=== PATIENT | female | born 1945 ===

== ENCOUNTER → 2023-10-07 | Outpatient (CLI) | payer OTHER ==
[2023-10-07 11:44] LABS: Basophils # (auto) 0 10 ^3/uL (0-0.2); Basophils % (auto) 0.5 % (0.0-2.0); Eosinophils # (auto) 0.2 10 ^3/uL (0-0.8); Eosinophils % (auto) 3.2 % (0.0-7.0); Hemoglobin 13.8 g/dL (12.2-16.2); Lymphocytes % (auto) 35.8 % (10.0-50.0); Mean Corpuscular Hemoglobin 28.9 pg (28.0-32.0); Mean Corpuscular Hgb Conc. 32.9 g/dL (32.0-36.0); Mean Corpuscular Volume 87.7 fL (80.0-100.0); Monocytes # (auto) 0.4 10 ^3/uL (0-1.3); Monocytes % (auto) 7.7 % (0.0-12.0); Neutrophils # (auto) 2.9 10 ^3/uL (1.6-8.6); Neutrophils % (auto) 52.8 % (37.0-80.0); Red Blood Cells 4.79 10^6/uL (4.0-5.20); Red Cell Distribution Width 14.1 % (11.8-14.3); White Blood Cell 5.5 10^3/uL (4.4-10.8)
[2023-10-07 12:35] LABS: Erythrocyte Sedimentation Rate 8 mm/hr (0-20)
[2023-10-07 13:33] LABS: Alanine Aminotransferase 14 U/L (7-40); Albumin 4.4 g/dL (3.2-4.8); Alkaline Phosphatase 68 U/L (46-116); Aspartate Aminotransferase 24 U/L (13-40); BUN/Creatinine Ratio 8.9 (10.0-20.0); Bilirubin, Total 0.6 mg/dL (0.2-1.0); Blood Urea Nitrogen 9 mg/dL (9-23); Calcium 9.9 mg/dL (8.5-10.1); Cholesterol 151 mg/dL (< 200); Glucose 96 mg/dL (74-106); HDL Cholesterol 56 mg/dL (40-59); LDL Cholesterol 78 mg/dL (< 100); Sodium 141 mmol/L (136-145); Total Protein 6.9 g/dL (5.7-8.2); Triglycerides 113 mg/dL (< 150)
[2023-10-07 13:51] LABS: Free T4 (Free Thyroxine) 0.98 ng/dL (0.89-1.76)
[2023-10-07 13:52] LABS: Carbon Dioxide 25 mmol/L (20-30)
[2023-10-07 13:53] LABS: Folate (Folic Acid) 16.15 ng/mL (>5.38)
[2023-10-07 17:00] LABS: Anion Gap 8 (5-15); Chloride 108 mmol/L (98-107)
[2023-10-08 07:06] LABS: RPR Non Reactive (Non Reactive)
[2023-10-08 07:13] LABS: Urine Bacteria NONE SEEN /hpf (None Seen); Urine Blood Negative /uL (Negative); Urine Clarity Clear (Clear); Urine Protein, UAD Negative (Negative); Urine Specific Gravity 1.006 (1.001-1.035); Urine Urobilinogen Normal (Negative); Urine WBC 1 /hpf (0 - 5)
[2023-10-08 07:14] LABS: Urine Color Straw (Yellow)
== END | disposition home or self-care (01) ==
LOC: LAB 11:15
PROVIDERS: ATTEND Internal Medicine
DX: I10 Essential (primary) hypertension (principal); L30.9 Dermatitis, unspecified
CPT/HCPCS: 36415; 80053; 80061; 81001; 82607; 82746; 84439; 84443; 85025; 85652; 86592

== ENCOUNTER → 2023-10-08 | Outpatient (CLI) | payer OTHER | END | disposition home or self-care (01) | LOC: LAB 06:39 | PROVIDERS: ATTEND Internal Medicine | DX: K52.9 Noninfective gastroenteritis and colitis, unspecified (principal) | CPT/HCPCS: 87045; 87177; 87427; 87493 ==

== ENCOUNTER 2025-02-10 04:45 | Emergency (ER) | payer OTHER ==
[~2025-02-10] VITALS: Ht 167.6 cm; Wt 68.0 kg
--- NOTE | 2025-02-10 06:40 | DVH ---
EXAM: CT CHEST WITHOUT CONTRAST; DATE: 02/10/2025 06:03 AM HISTORY: rib pain fall COMPARISON: None TECHNIQUE: Axial images were obtained and reformatted in coronal and sagittal planes. All CT scans a [facility] are performed using dose modulation techniques as appropriate to a performed exam including the following: Automated exposure control was utilized; adjustment of the MA and/or KV according to patient size; and use of iterative reconstruction technique. CT Dose: CTDI volume is 16.6 mGy. Dose-length product is 610 mGy*cm FINDINGS: Lower neck: Unremarkable. Cardiomediastinal: The heart is normal in size. Coronary artery calcification. No pericardial effus ion. Lungs: Unremarkable. Bones and Soft Tissues: No acute abnormality. No rib fracture. Mild multilevel degenerative disc dis ease of the thoracic spine noted. Mild upper thoracic spine dextroscoliosis. Upper Abdomen: No acute abnormality. Surgical clips are seen in the right upper quadrant. Several lef t renal cysts noted. Other: None. IMPRESSION: 1. No acute abnormality is identified. No rib fracture.
--- NOTE | 2025-02-10 06:45 | ED.PDOC ---
History of Present Illness HPI Comments 79F BIBA w/ no prior Hx associated to the c/c of rib pain. Pt's son reports that the pt fell and landed onto a trash can which had "sharp ridges" last night. Son stated that the pt was fine and went to bed until, 0300 when the son heard the pt wheezing wheezing and wanting to go to the bathroom. When the son tried helping the pt go to the bathroom she complained of CP and the son immediately called 911. Son notes that the pt had a colonoscopy 1 month ago. PMHx of HTN and Dementia. Denies chills, fever, N/V/D, SOB or no other associated symptoms, modifiers, recent injuries or sick contacts at this time. Chief Complaint: Rib Pain Time Seen by MD: 06:20 Reviewed Notes: Nurses Notes, Neck Fitter Notes, Medications, Allergies Allergies: Coded Allergies: NO KNOWN ALLERGIES (Unverified , 02/10/25) Information Source: Patient, Relative (Child) Mode of Arrival: Ambulatory Severity: Moderate Timing: Hours Duration: Since onset, Hours Prehospital treatment: None Past Medical History PAST MEDICAL HISTORY: Dementia (mild), HTN Surgical History: Denies all surgeries AMBULANCE ASSISTANT History: No Pertinent AMBULANCE ASSISTANT History Family History Family History: Reviewed,noncontributory to illness, Unknown Social History Smoker: Non-Smoker Alcohol: Denies ETOH Use Drugs: Denies Drug Use Lives In: Home Constitutional: denies: chills, diaphoresis, fatigue, fever, malaise, sweats, weakness, others EENTM: denies: blurred vision, double vision, ear bleeding, ear discharge, ear drainage, ear pain, ear ringing, eye pain, eye redness, hearing loss, mouth pain, mouth swelling, nasal discharge, nose bleeding, nose congestion, nose pain, photophobia, tearing, throat pain, throat swelling, voice changes, others Respiratory: denies: cough, hemoptysis, orthopnea, SOB at rest, shortness of breath, SOB with excertion, stridor, wheezing, others Cardiovascular: reports: chest pain; denies: dizzy spells, diaphoresis, Dyspnea on exertion, edema, irregular heart beat, left arm pain, lightheadedness, palpitations, PND, syncope, others Gastrointestinal: denies: abdomen distended, abdominal pain, blood streaked bowels, constipated, diarrhea, dysphagia, difficulty swallowing, hematemesis, melena, nausea, poor appetite, poor fluid intake, rectal bleeding, rectal pain, vomiting, others Genitourinary: denies: abnormal vagina bleeding, burning, dyspareunia, dysuria, flank pain, frequency, hematuria, incontinence, pain, , vagina discharge, urgency, others Neurological: denies: dizziness, fainting, headache, left sided numbness, left sided weakness, numbness, paresthesia, pre-existing deficit, right sided numbness, right sided weakness, seizure, speech problems, tingling, tremors, weakness, others Musculoskeletal: denies: back pain, gout, joint pain, joint swelling, muscle pain, muscle stiffness, neck pain, others Integumetry: denies: bruises, change in color, change in hair/nails, dryness, laceration, lesions, lumps, rash, wounds, others Allergic/Immunocompromised: denies: Difficulty Healing, Frequent Infections, Hives, Itching, others Hematologic/Lymphatic: denies: anemia, blood clots, easy bleeding, easy bruising, swollen glands, others Endocrine: denies: excessive hunger, excessive sweating, excessive thirst, excessive urination, flushing, intolerance to cold, intolerance to heat, unexplained weight gain, unexplained weight loss, others Psychiatric: denies: anxiety, bipolar disorder, depression, hopeless, panic disorder, schizophrenia, sleepless, suicidal, others All Other Systems: Reviewed and Negative Physical Exam General Appearance: Moderate Distress, Normal HEENT: Normal ENT Inspection, Pharynx Normal, TMs Normal Neck: Full Range of Motion, Non-Tender, Normal, Normal Inspection Respiratory: Chest Non-Tender, Lungs Clear, No Accessory Muscle Use, No Respiratory Distress, Normal Breath Sounds Cardiovascular: No Edema, No JVD, No Murmur, No Gallop, Normal Peripheral Pulses, Regular Rate/Rhythm Breast Exam: Deferred Gastrointestinal: No Organomegaly, Non Tender, No Pulsatile Mass, Normal Bowel Sounds, Soft Genitalia: Deferred Pelvic: Deferred Rectal: Deferred Extremities: No calf tenderness, Normal capillary refill, Normal inspection, Normal range of motion, Non-tender, No pedal edema Musculoskeletal : Apperance: Normal Neurologic: Alert, lehr loader II-XII nml as Tested, No Motor Deficits, Normal Affect, Normal Mood, No Sensory Deficits Cerebellar Function: NOT DONE Reflexes: NOT DONE Skin: Dry, Normal Color, Warm Peripheral Pulses: 3+ Radial (R), 3+ Radial (L) Lymphatic: No Adenopathy Was a procedure done? Was a procedure done?: No Differential Dx Considerations may include: Muscle strain X-Ray, Labs, Meds, VS Vital Signs Date Time Temp Pulse Resp B/P (MAP) Pulse Ox O2 Delivery O2 Flow Rate FiO2 02/10/25 04:45 98.6 75 16 160/78 (105) 98 98.6 EXAM: CT CHEST WITHOUT CONTRAST; DATE: 02/10/2025 06:03 AM HISTORY: rib pain fall COMPARISON: None TECHNIQUE: Axial images were obtained and reformatted in coronal and sagittal planes. All CT scans at this medical facility are performed using dose modulation techniques as appropriate to a performed exam including the following: Automated exposure control was utilized; adjustment of the MA and/or KV according to patient size; and use of iterative reconstruction technique. CT Dose: CTDI volume is 16.6 mGy. Dose-length product is 610 mGy*cm FINDINGS: Lower neck: Unremarkable. Cardiomediastinal: The heart is normal in size. Coronary artery calcification. No pericardial effusion. Lungs: Unremarkable. Bones and Soft Tissues: No acute abnormality. No rib fracture. Mild multilevel degenerative disc disease of the thoracic spine noted. Mild upper thoracic spine dextroscoliosis. Upper Abdomen: No acute abnormality. Surgical clips are seen in the right upper quadrant. Several left renal cysts noted. Other: None. IMPRESSION: 1. No acute abnormality is identified. No rib fracture. Patient alert. Complaining of rib pain. Status post fall landing on her ribs. Vitals stable. History of dementia. Spoke to the family pain CT of the chest reviewed does not show any acute process. Was given [place]. Reviewed her history. Was told to follow up with her primary care physician. Was told to come back if there is any problem. Time of 1ST Reevaluation: 06:50 Reevaluation 1ST: Unchanged Patient Education/Counseling: Diagnosis, Treatment, Prognosis Family Education/Counseling: Diagnosis, Treatment, Prognosis Departure 1 Departure Time of Disposition: 07:01 Impression: Primary Impression: Musculoskeletal pain Additional Impression: HTN (hypertension) Qualified Codes: I10 - Essential (primary) hypertension Disposition: HOME / SELF CARE / HOMELESS Condition: Good Discharged With: Self Critical Care Note Critical Care Time?: No Stability Stability form required: No Heart Score Heart Score: Heart Score Response (Comments) Value History N/A 0 EKG N/A 0 Age N/A 0 Risk Factors N/A 0 Troponin N/A 0 Total 0 I personally scribed for MIRYAM BANDA MD ([email or web address]) on 02/10/25 at 06:45. Electronically submitted by Lenny Marshall ([email or web address]). I personally scribed for MIRYAM BANDA MD ([email or web address]) on 02/10/25 at 07:03. Electronically submitted by Lenny Marshall ([email or web address]). MIRYAM BANDA MD Feb 10, 2025 06:45
[2025-02-10] MEDS: HYDROcodone-ACET 10/325MG TAB PO ONE (07:20)
[2025-02-10 07:21] VITALS: BP 144/78; TEMP 98.3
[2025-02-10 07:26] VITALS: PULSE 83; RESP 16; O2SAT 98
== END 2025-02-10 08:11 | disposition home or self-care (01) ==
LOC: ER 04:45 → EDBD 04:45 → ER 08:11
DX: R07.81 Pleurodynia (principal); I10 Essential (primary) hypertension; F03.A0 Unspecified dementia, mild, without behavioral disturbance, psychotic disturbance, mood disturbance, and anxiety
CPT/HCPCS: 71250